=== PATIENT | female | born 1955 | race Caucasian/White ===

== ENCOUNTER 2016-10-05 10:41 | Day surgery (SDC) | payer MEDICARE ==
[~2016-10-05] VITALS: Ht 160 cm; Wt 61.0 kg
[~2016-10-05 10:41] MED LIST: AMPH20CA5 PO; CALC500O PO; Lactated Ringer's 1,000 ML IV ONE; MULT-666 PO; UBID50TA3 PO; VENL150C PO
[2016-10-05] MEDS ORDERED: Propofol 10,000 mCg/mL 20 mL Inj ONE (10:42)
[2016-10-05 11:01] VITALS: BP 121/85; PULSE 105; RESP 16; O2SAT 97
[2016-10-05 11:02] VITALS: BP 106/75; PULSE 88; RESP 14; O2SAT 93
[2016-10-05] MEDS ORDERED: OMEP20CA11 PO (11:09)
[2016-10-05 11:12] VITALS: BP 110/79; PULSE 88; RESP 14; O2SAT 95
--- NOTE | 2016-10-05 11:17 | PCM.HPANE ---
Patient Data Surgeon Admitting Provider: Attending Provider:Tez Harrell MD Primary Care Physician:[facility] Other Provider:Trish [place] Anesthesia Reason for Visit Fhx Colon Cancer Ht/WT & BMI Height (Feet): 5 Height (Inches): 3 Weight (Kilograms): 61 Body Mass Index 23.00 Allergies Coded Allergies: codeine (Verified Allergy, Unknown, 10/04/16) Past Anesthesia History Anesthesia History: Denies:: Abnormal Airway, Anesthesia Reactions, Difficult Intubation, Fam Anesthesia Reaction, Fam Malignant Hypertherm, Malignant Hyperthermia Diabetes History Hx Diabetes?: No MRSA MRSA: No Medications Reported Medications Omeprazole 20 Mg Capsule.dr20 Mg PO DAILY Ref 0 10/05/16 Calcium Carbonate 500 Mg/5 Ml Oral.tzwe849 Mg PO 10/04/16 Ubidecarenone (Coq10)50 Mg Tab.chew50 Mg PO 10/04/16 Multivitamin (Once Daily)1 Each Tablet1 Each PO 10/04/16 Venlafaxine ER (Effexor XR)150 Mg Eglceoq331 Mg PO DAILY Ref 0 10/04/16 Discontinued Reported Medications Dextroamphetamine/Amphetamine ER (Adderall XR)20 Mg Thfbgwj22 Mg PO DAILY Ref 0 10/04/16 History HEENT History: Denies:: Abnormal Airway Difficult Intubation Dysphagia Hearing Problem Denture Type: Full- Upper Full- Lower Hx of Heart Problems?: No Hx of Respiratory Problem?: No Neurological History: Denies:: CVA Hx of GI Problems?: Yes Gastrointestinal History: Positive for:: Diverticulitis (HISTORY OF) Gastroesphageal Reflux (OTC OMEPRAZOLE DAILY) Denies:: Gall Bladder Disease Hiatal Hernia Liver Disease Rectal Bleeding Female Hx: Positive for:: Currently (POST MENOPAUSE) Musculoskeletal History: Denies:: Fibromyalgia Joint Replacement Psycho Social History: Positive for:: Anxiety Hx Depression Hx Surgeries?: Yes (HEAD, APPY, RIGHT FOOT, TUBAL LIGATION) Hx Any Other Health Problems?: Yes Hx Diabetes: No Hx Alcohol Use: No (MARIJUANA DAILY) Stop/Bang Treated for Sleep Apnea?: No Do You Have a CPAP Machine?: No S-Snoring: Do You Snore Loudly: No T-Tired: feel tired, fatigued: Yes O-Obsered: Observed not breath: No P-Blood Pressure: treated: No B- Body Mass Index > 35 kg/m2: No A- Age over 50: Yes N- Neck Large Circumference: No G- Gender Male: No BATSHEVA Total Score: 2 BATSHEVA Risk Assessment: Low Risk, <3 Yes Risk Assessment Category Category 1A: Patient has history of documented sleep apnea, and HAS NOT received any narcotic, sedative or anesthesia administration during this stay. Category 1B: Patient has history of documented sleep apnea, and HAS received any narcotic , sedative or anesthesia administration during this stay Category 2: Patient has SUSPECTED Obstructive Sleep Apnea, and HAS received any narcotic , sedative or anesthesia administration during this stay. Category 3: Patient has SUSPECTED Obstructive Sleep Apnea and HAS NOT received narcotic, sedative or anesthesia administration during this stay. Category 4: Outpatient in Procedural Areas with known sleep apnea or who screen positive for High Risk via the STOP/BANG questionnaire. Exam Exam Vital Signs Vital Signs Date Time Temp Pulse Resp B/P Pulse Ox O2 Delivery O2 Flow Rate FiO2 10/05/16 11:01 37.2 105 16 121/85 97 Room Air General Appearance: Oriented X3 HEENT/AIRWAY: MP 2 Lungs: Normal Air Movement Heart: Regular Rate/Rhythm Plan Impression Patient chart reviewed, patient interviewed and anesthestic plan with risks, benefits, and alternatives discussed, and informed consent obtained. ASA Physical Status: ASA2 Mod Systemic Disease Anesthetic Plan: MAC Bene/Risks/Altern/Consents: Yes HP Complete Prior to Induction: Yes Con Mayorga MD Oct 05, 2016 11:17
[2016-10-05] MEDS ORDERED: Ondansetron 2 mg/mL 2 mL Inj IVPUSH PRN (11:20)
[2016-10-05] MEDS ORDERED: MetoCLOpramide 5 mg/mL 2 mL Inj IVPUSH PRN (11:20)
[2016-10-05 11:24] VITALS: BP 119/78; PULSE 95; RESP 14; O2SAT 95
[2016-10-05] MEDS: Lactated Ringer's 1,000 ML IV SCH ×2 (11:25→11:40)
--- NOTE | 2016-10-05 11:56 | PCM.ANEP2 ---
Post Anesthesia Evaluation ASA/CMS Post Anesthesia VS in Patient's Normal Range?: Yes Resp Stable; Airway Patent?: Yes CV Function & Hydration Stable: Yes Mental Status Recovered?: Yes Pain control Satisfactory?: Yes N/V Control Satisfactory?: Yes Con Mayorga MD Oct 05, 2016 11:56
--- NOTE | 2016-10-05 11:56 | PCM.ANEP1 ---
Post Anesthesia Phase 1 PACU Phase 1 Assessment Vital Signs Vital Signs Date Time Temp Pulse Resp B/P Pulse Ox O2 Delivery O2 Flow Rate FiO2 10/05/16 11:02 88 14 106/75 93 Room Air 10/05/16 11:01 37.2 105 16 121/85 97 Room Air Anesthetic Administered: MAC Level of Alertness: Awake, talking Pain: No Nausea or Vomiting: No Oxygen Delivery: Room Air Lungs: Normal Air Movement Con Mayorga MD Oct 05, 2016 11:56
--- NOTE | 2016-10-05 12:07 | ENDO ---
[address] [address] ENDOSCOPY PROCEDURE PATIENT: BETTYE RANGEL : 1955 MR#: [id number] ADMIT: 10/05/2016 JOB ID: [id number] OPERATION: Colonoscopy with biopsy. PREOPERATIVE DIAGNOSIS(ES): Family history of colon cancer. POSTOPERATIVE DIAGNOSIS(ES): 1. A 2 mm rectal polyp, removed by cold biopsy forceps. 2. A 2 mm sigmoid polyp, removed by cold biopsy forceps. 3. Severe diverticulosis in the sigmoid, with tortuous colon in the sigmoid. 4. Small internal hemorrhoids. ANESTHESIA: Monitored anesthesia care. COMPLICATIONS: None. BLOOD LOSS: Minimal. DESCRIPTION OF PROCEDURE: After risks and benefits were explained to the patient, informed consent was obtained. After anesthesia was administered, the colonoscope was inserted from rectum to cecum and the mucosa carefully examined. The prep of the patient was fair. After the procedure was done, the scope was withdrawn and the procedure terminated. Upon inspection of the anus, no masses, hemorrhoids, ulcers, or fissures were seen. Throughout the entire examination there was a 2 mm sigmoid colon polyp and a 2 mm rectal polyp removed by cold biopsy forceps. There was severe sigmoid diverticulosis with tortuous colon down at that region. No other polyps or masses were seen. Retroflexion showed small internal hemorrhoids. IMPRESSION: 1. Small internal hemorrhoids. 2. A 2 mm sigmoid colon polyp and a 2 mm rectal polyp, removed by cold biopsy. 3. Severe diverticulosis in the sigmoid colon with tortuous colon in that region. RECOMMENDATIONS: 1. High-fiber diet. 2. Repeat colonoscopy in five years.
--- NOTE | 2016-10-08 15:12 | PATH ---
SURGICAL PATHOLOGY Attending Physician:Tez Harrell MD CASE STATUS: Signed Out PATIENT NAME: BETTYE RANGEL PID: [id number] : 1955 DATE COLLECTED:10/05/2016 21:42 SPECIMEN: 1: Colon, Biopsy 2: Rectum, Biopsy CLINICAL HISTORY: FAM HX COLON CA COLON POLYP 1. SIGMOID POLYP 2. RECTAL POLYP FINAL DIAGNOSIS: 1. Sigmoid Polyp: Hyperplastic polyp. 2. Rectal Polyp: Hyperplastic polyp. ICD10 K63.5, K62.1 GROSS DESCRIPTION: The specimen is received in two formalin filled containers labeled with the patient's name. 1). The specimen is sublabeled "sigmoid polyp" and consists of a 0.3 x 0.3 x 0.3 CM portion of tissue which is entirely submitted in cassette 1A. 2). The specimen is sublabeled "rectal polyp" and consists of a 0.3 x 0.2 x 0.2 CM portion of tissue which is entirely submitted in cassette 2A. 10/06/2016 DAC MICRO DESCRIPTION: Please see diagnosis. ICD-9 CODES: CPT CODES: 1: 86450 2: 62234 Electronically Signed Out Peace Davis MD [facility] [address], [place] [address] Technical component performed at [facility], [facility] [address], [place], [address]
== END 2016-10-05 23:59 | disposition home or self-care (01) ==
LOC: END 10:41
PROVIDERS: ATTEND Internal Medicine Gastroenterology
DX: Z12.11 Encounter for screening for malignant neoplasm of colon (principal); K63.5 Polyp of colon; K62.1 Rectal polyp; K64.8 Other hemorrhoids; K57.30 Diverticulosis of large intestine without perforation or abscess without bleeding; Z80.0 Family history of malignant neoplasm of digestive organs; G31.84 Mild cognitive impairment of uncertain or unknown etiology; F41.8 Other specified anxiety disorders; F90.9 Attention-deficit hyperactivity disorder, unspecified type
CPT/HCPCS: 45380; J7120